=== PATIENT | female | born 1965 | race Caucasian/White ===

== ENCOUNTER → 2017-11-28 | Outpatient (CLI) | payer BC ==
--- NOTE | ~2017-11-28 | S ---
[facility] [place] [address] SURGICAL PATH RPT PROCEDURE Name: TITI WANG Room #: REG [facility] Danny.Екатерина.#: [id number] Admission: 11/28/17 Date of : 67 Discharge: Report #: [id number] Path Case #: [id number] PATHOLOGY REPORT COLLECTION DATE: 11/28/2017 RECEIVED DATE: 11/28/2017 SUBMITTING PHYS: Dr. Arpan Weiss OTHER PHYS: Dr. Beth Mesa SPECIMEN(S) RECEIVED: A.Left breast calcs-upper outer * * * * * * * * * * * * FINAL DIAGNOSIS: "Left breast calcs - upper outer", image guided needle biopsy: - Benign breast with fibrocystic changes including stromal fibrosis, small cyst formation, columnar cell hyperplasia and adenosis with coarse microcalcifications present; no cytologic atypia or malignancy seen. COMMENT: [employer] slides are co-reviewed with Dr. Madeleine Hernandez. (CLW:pit; 11/29/2017) PATHOLOGIST: Deyanira Ariza M.D. REPORT ELECTRONICALLY SIGNED BY: Deyanira Ariza M.D. DATE/TIME: 11/29/2017 18:47 * * * * * * * * * * * * GROSS PATHOLOGY: Received in formalin labeled "Titi Wang, left upper outer breast calcs," are multiple needle cores of yellow-ricks fibrofatty tissue measuring 3.0 x 1.9 x 0.4 cm in aggregate dimensions. Also received is a plastic cassette containing multiple cores of yellow-ricks fibrofatty tissue measuring 3.2 x 2.5 x 0.5 cm in aggregate dimensions. The tissue in the cassette is transferred to cassette A3, and the remaining tissue is submitted in its entirety in cassette A1-A2. The cold ischemic time is 5 minutes. The total formalin fixation time is 10 hours and 30 minutes. (SDY; 11/28/2017) CLINICAL HISTORY: Calcs INITIAL CPT CODE(S): [facility] [place] [address] SURGICAL PATH RPT PROCEDURE Name: TITI WANG Room #: REG [facility].R.#: [id number] Admission: 11/28/17 Date of : 67 Discharge: Report #: [id number] Path Case #: [id number] Professional services performed by [facility] at [place] [address] [address], [place] [address] Technical services performed by [facility] at [address] [place] [address], [address], [place] [address]. [facility] [place] [address] PHONE: [phone] DIRECTOR: Usman Soriano M.D. * * * END OF REPORT * * *
== END | disposition home or self-care (01) ==
LOC: RAD 10:39
DX: N60.12 Diffuse cystic mastopathy of left breast (principal)